=== PATIENT | female | born 1995 | race Caucasian/White ===

== ENCOUNTER → 2020-04-06 | Outpatient (CLI) | payer BC ==
[~2020-04-06] MED LIST: BCP
--- NOTE | 2020-04-06 16:22 | Diagnostic Imaging Report ---
INDICATION: Size and dates, patient. TECHNIQUE/COMPARISON: OB sonography was performed in the routine fashion. There is no prior study for comparison. FINDINGS: The uterus measures 10.3 x 4.8 x 9.1 cm. A single live intrauterine fetus is seen measuring 9 weeks 6 days by crown-rump length with a heart rate of 181 BPM. The crown/rump length is 2.9 cm. The gestational sac appears unremarkable. A normal-appearing yolk sac is visualized. The right ovary measures 5.0 x 1.5 x 2.0 cm and appears unremarkable with color flow. The left ovary could not be visualized. There is no free fluid. IMPRESSION: Single live intrauterine fetus measuring 9 weeks 6 days in size. There is no evidence of subchorionic bleed. There was no free fluid. A normal-appearing right ovary seen but the left ovary was not visualized. Suggest followup later in for a full anatomical survey. Dictated by: Dictated on workstation # [id number]
== END ==
LOC: RAD 14:59
PROVIDERS: ATTEND Family Medicine
DX: Z34.91 Encounter for supervision of normal pregnancy, unspecified, first trimester (principal); Z3A.09 9 weeks gestation of pregnancy
CPT/HCPCS: 76801

== ENCOUNTER → 2020-05-08 | Outpatient (CLI) | payer BC | LOC: CARD 09:07 | PROVIDERS: ATTEND Internal Medicine Cardiovascular Disease | DX: R00.2 Palpitations (principal); R00.0 Tachycardia, unspecified | CPT/HCPCS: 93306 ==

== ENCOUNTER → 2020-06-19 | Outpatient (CLI) | payer BC ==
--- NOTE | 2020-06-19 15:37 | Diagnostic Imaging Report ---
INDICATION: survey. TECHNIQUE: Multiple real-time grayscale images were obtained over the gravid uterus. COMPARISON: 04/06/2020. FINDINGS: There is a single live fetus in a cephalic presentation. heart rate was recorded at 150 BPM. Placenta is posterior. No previa is identified. Amniotic fluid index is 9.8 cm. kidneys, bladder, and stomach are unremarkable. There is a three-vessel cord with normal insertion. spine is unremarkable. brain evaluation is somewhat limited due to position. In addition, four-chamber heart view is somewhat limited due to position. profile and nose and lips is limited. Biometrical measurements are as follows: Biparietal 5.13 cm, age 21 weeks 4 days. Head circumference 18.32 cm, age 20 weeks 5 days. Abdominal circumference 15.53 cm, age 20 weeks 5 days. Femur length 3.23 cm, age 20 weeks 1 days. Sonographic estimate age: 20 weeks 6 days. Sonographic estimated date of delivery: 10/31/2020. Estimated Weight: 357 gm (+/- 52 gm). LMP percentile: 73%. heart rate: 150 beats per minute. number: 1 of 1. IMPRESSION: Single live IUP of approximately 21 weeks gestational age demonstrating normal interval growth when compared with prior exam. survey is unremarkable, although the head anatomy and four-chamber heart view is somewhat limited due to position. Follow-up could be performed. Dictated by: Dictated on workstation # [id number]
== END ==
LOC: RAD 14:00
PROVIDERS: ATTEND Family Medicine
DX: Z36.89 Encounter for other specified antenatal screening (principal); Z3A.21 21 weeks gestation of pregnancy
CPT/HCPCS: 76805

== ENCOUNTER → 2020-07-31 | Outpatient (CLI) | payer BC ==
--- NOTE | 2020-07-31 16:15 | Diagnostic Imaging Report ---
INDICATION: Further evaluation of anatomy not seen on survey. TECHNIQUE: Multiple real-time grayscale images were obtained over the gravid uterus. COMPARISON: 06/19/2020 FINDINGS: Limited anatomy survey is performed and the following structures are visualized and normal: Four-chamber heart, cerebellum, cisterna magna, cerebral ventricles, profile, lips/nose. Placenta is posteriorly positioned and there is no previa. heart rate is 150 bpm. IMPRESSION: 1. The anatomy of the head that was not visualized on prior examination is seen today and normal. Dictated by: Dictated on workstation # [id number]
== END ==
PROVIDERS: ATTEND Family Medicine
DX: Z03.73 Encounter for suspected fetal anomaly ruled out (principal)
CPT/HCPCS: 76816

== ENCOUNTER 2020-10-27 02:28 | Inpatient (IN) | payer BC ==
[2020-10-27] VITALS (60 sets, daily range): BP systolic 106–146; BP diastolic 65–111
[~2020-10-27] VITALS: Ht 167.7 cm; Wt 79.0 kg
--- NOTE | 2020-10-27 02:35 | NUR ---
MICHAEL LOZANO presented to unit via W/C from home/ED, accompanied by ED RN & SO, with c/o CONTRACTIONS,WATER BROKE. MICHAEL LOZANO weighed, gowned, voided, and to bed. EFHM and TOCO applied, VS taken. MICHAEL LOZANO oriented to bed controls, call light, TV, heat, and A/C controls.
[2020-10-27] MEDS ORDERED: D5 LR IV SOLUTION 1,000 ML IV ONE (02:51)
[2020-10-27] MEDS ORDERED: PREN-142 PO (02:57)
[2020-10-27] MEDS ORDERED: ERYTHROMYCIN OPHTH OINT 1 GM (SINGLE USE) TUBE ONE (02:58)
[2020-10-27] MEDS ORDERED: PETROLATUM JELLY(VASELINE) 49 GM JAR ONE (02:58)
[2020-10-27] MEDS ORDERED: PHYTONADIONE (VIT. K) NEONATAL 1 MG/0.5 ML AMP ONE (02:58)
[2020-10-27] MEDS ORDERED: fentaNYL 2 mcg/ml BUPIVA 0.125 100 ML ONE (03:11)
[2020-10-27] MEDS ORDERED: labetalol PO (03:22)
[2020-10-27] MEDS: D5 LR IV SOLUTION 1,000 ML IV SCH ×2 (03:27→10:15)
[2020-10-27 03:47] LABS: BASOPHILS % (AUTO) 0 % (0-10); EOSINOPHILS # (AUTO) 0.2 10^3/uL (0.0-0.3); EOSINOPHILS % (AUTO) 2 % (0-10); HEMATOCRIT 32 % (35-52); HEMOGLOBIN 10.3 g/dL (11.5-16.0); LYMPHOCYTES # (AUTO) 3.2 10^3/uL (1.0-4.0); LYMPHOCYTES % (AUTO) 30 % (12-44); MEAN CORPUSCULAR HEMOGLOBIN 28 pg (25-34); MEAN CORPUSCULAR HGB CONC 32 g/dL (32-36); MEAN CORPUSCULAR VOLUME 88 fL (80-99); MEAN PLATELET VOLUME 12.1 fL (9.0-12.2); MONOCYTES % (AUTO) 9 % (0-12); NEUTROPHILS # (AUTO) 6.4 10^3/uL (1.8-7.8); NEUTROPHILS % (AUTO) 58 % (42-75); PLATELET COUNT 149 10^3/uL (130-400); WHITE BLOOD COUNT 10.9 10^3/uL (4.3-11.0)
[2020-10-27] MEDS ORDERED: LORA10TA76 PO (04:26)
[2020-10-27] MEDS ORDERED: LACTATED RINGERS 1,000 ML IV SCH (04:45)
[2020-10-27] MEDS ORDERED: diphenhydrAMINE 50 MG/ML INJ (BENADRYL) IV PRN (04:45)
[2020-10-27] MEDS ORDERED: METOCLOPRAMIDE INJ 10 MG/2 ML (REGLAN) IV PRN (04:45)
[2020-10-27] MEDS ORDERED: NALOXONE 0.4 MG/ML 1 ML (NARCAN) VIAL IV PRN ×2 (04:45)
[2020-10-27] MEDS ORDERED: ONDANSETRON 4 MG/2 ML (SDV) Z0FRAN IV PRN (04:45)
[2020-10-27] MEDS: EPIDURAL (fentaNYL 2 MCG/ML BUPIVA 0.125%)100 ML BAG EPI SCH ×2 (05:04→10:40)
[2020-10-27] MEDS: CATHETER FLUSH 10 ML SYR IV SCH ×2 (05:37→15:27)
--- NOTE | 2020-10-27 06:38 | History & Physical-OB ---
OB - Chief Complaint & HPI Date/Time Date of Admission: Date of Admission: Oct 27, 2020 at 02:50 Date seen by a Provider: Oct 27, 2020 Time Seen by a Provider: 06:30 Chief Complaint/History OB-Reason for Admission/Chief: Rupture of Membranes Hx : 1 Hx Para: 0 Expected Date of Delivery: Nov 03, 2020 Gestational Age in Weeks: 39 Gestational Age in Days: 0 Admission Nurse Assessment Rev: Yes History of Labs GBS negative at 36 weeks Allergies and Home Medications Allergies Coded Allergies: No Known Drug Allergies (Unverified , 05/05/15) Home Medications Loratadine 10 Mg Tablet, 10 MG PO DAILY, (Reported) Vit No.124/Iron/FA 1 Each Tablet, 1 EACH PO DAILY, (Reported) [labetalol] , PO DAILY, (Reported) Patient Home Medication List Home Medication List Reviewed: Yes OB - History Hx of Present Care: Yes Ultrasounds: Normal mid trimester US Obstetrical Complications: None Medical Complications: None Patient Past Medical History no chronic medical problems Immunizations Tetanus Booster (TDap): Less than 5yrs Date of Influenza Vaccine: Jun 01, 2020 OB - Admission Exam Physical Exam Vitals: Vital Signs 10/27/20 10/27/20 05:30 05:50 Temp 36.8 Pulse 98 Resp 18 B/P (MAP) 119/78 (92) Pulse Ox 99 O2 Delivery Room Air HEENT: Moist Membranes Heart: Rhythm Normal Lungs: Clear Abdomen: Gravid Extremities: Normal Cervical Dilatation: 3cm (on admission) Effacement: 50% Station: -3 Membranes: Ruptured Amniotic Fluid: Clear Heart Rate: 140's Accelerations: Accelerations Present Decelerations: No Decelerations Short Term Variability: Present Glass Cleaning Machine Tender Variability: Absent (0-2) Contractions on Admission: < 5 Minutes Apart Intensity: Moderate Labs Laboratory Tests Test 10/27/20 03:10 10/27/20 03:35 Range/Units White Blood Count 10.9 4.3-11.0 10^3/uL Red Blood Count 3.68 L 3.80-5.11 10^6/uL Hemoglobin 10.3 L 11.5-16.0 g/dL Hematocrit 32 L 35-52 % Mean Corpuscular Volume 88 80-99 fL Mean Corpuscular Hemoglobin 28 25-34 pg Mean Corpuscular Hemoglobin Concent 32 32-36 g/dL Red Cell Distribution Width 13.5 10.0-14.5 % Platelet Count 149 130-400 10^3/uL Mean Platelet Volume 12.1 9.0-12.2 fL Immature Granulocyte % (Auto) 2 % Neutrophils (%) (Auto) 58 42-75 % Lymphocytes (%) (Auto) 30 12-44 % Monocytes (%) (Auto) 9 0-12 % Eosinophils (%) (Auto) 2 0-10 % Basophils (%) (Auto) 0 0-10 % Neutrophils # (Auto) 6.4 1.8-7.8 10^3/uL Lymphocytes # (Auto) 3.2 1.0-4.0 10^3/uL Monocytes # (Auto) 1.0 0.0-1.0 10^3/uL Eosinophils # (Auto) 0.2 0.0-0.3 10^3/uL Basophils # (Auto) 0.0 0.0-0.1 10^3/uL Immature Granulocyte # (Auto) 0.2 H 0.0-0.1 10^3/uL OB - Assessment/Plan/Diagnosis Assessment Assessment: rupture of membranes (at 39 weeks gestation) Admission Dx 1. IUP at term 39weeks with SROM Admission Status: Inpatient Order (span 2 midnights) Reason for Inpatient Admission: L&D Plan Plan: Expectant Management Other Plan -epidural desired -pitocin if needed ART MAR MD Oct 27, 2020 06:38
[2020-10-27] MEDS ORDERED: OXYTOCIN PRE-MIX DRIP 500 ML IV SCH ×2 (06:45→15:30)
--- NOTE | 2020-10-27 07:00 | NUR ---
REPORT FROM PEARL BALL. CARE OF PT ASSUMED.
[2020-10-27] MEDS ORDERED: MEPIVACAINE (CARBOCAINE) 2% 50 ML VIAL ONE (08:01)
--- NOTE | 2020-10-27 13:50 | NUR ---
1350-REPAIR COMPLETED PER FFU/2 LT LOCHIA NOTED. 1357- PERICARE COMPLETED, PAD AND PANTIES APPLIED, ICE PACK TO PERINEUM, PT REPOSITIONED IN BED, EPIDURAL CATHETER REMOVED. SKIN TO SKIN WITH MOTHER. 1405- INFANT REMAINS SKIN TO SKIN WITH MOTHER, FFU/2 LT LOCHIA NOTED. 1407- PITOCIN 2ND BAG STARTED PER ORDER.
--- NOTE | 2020-10-27 14:21 | OB Labor & Delivery Record ---
L&D History Date of Service Date of Service: Oct 27, 2020 History Expected Date of Delivery: Nov 03, 2020 Gestational Age in Weeks: 39 Hx : 1 Hx Para: 0 Complications Events: Routine care Operative Indications (Cesarea: N/A-Vaginal Delivery Intrapartal Events: None L&D Stage1 Stage One Onset of Labor - Date: Oct 27, 2020 Onset of Labor - Time: 01:30 Monitors and Tracing Monitor Mode: Internal Heart Rate: 135 Monitor Decelerations: Variable Station: -2 Vital Signs VS - Last 72 Hours, by Label 10/27/20 10/27/20 10/27/20 10/27/20 02:41 02:41 03:24 03:43 Temp 36.8 36.8 Pulse 104 104 89 96 Resp 18 18 18 18 B/P (MAP) 141/96 (111) 135/97 (110) 140/97 (111) Pulse Ox 98 98 O2 Delivery Room Air Room Air Room Air Room Air 10/27/20 10/27/20 10/27/20 10/27/20 03:54 04:09 04:25 04:33 Pulse 92 96 98 93 Resp 18 18 18 18 B/P (MAP) 142/98 (113) 137/102 (114) 146/111 (123) 146/97 (113) Pulse Ox 98 O2 Delivery Room Air Room Air Room Air Room Air 10/27/20 10/27/20 10/27/20 10/27/20 04:39 04:48 04:53 04:58 Pulse 102 99 84 103 Resp 18 18 18 18 B/P (MAP) 130/90 (103) 124/86 (99) 124/85 (98) 119/83 (95) Pulse Ox 97 99 99 98 O2 Delivery Room Air Room Air Room Air Room Air 10/27/20 10/27/20 10/27/20 10/27/20 05:11 05:18 05:22 05:30 Temp 36.8 Pulse 105 105 102 99 Resp 18 18 18 18 B/P (MAP) 111/72 (85) 112/80 (91) 116/83 (94) 114/80 (91) Pulse Ox 99 98 99 100 O2 Delivery Room Air Room Air Room Air Room Air 10/27/20 10/27/20 10/27/20 10/27/20 05:35 05:40 05:45 05:50 Pulse 86 97 95 98 Resp 18 18 18 18 B/P (MAP) 118/70 (86) 115/75 (88) 112/75 (87) 119/78 (92) Pulse Ox 100 100 99 99 O2 Delivery Room Air Room Air Room Air Room Air 10/27/20 10/27/20 10/27/20 10/27/20 06:00 06:15 06:30 06:45 Pulse 100 100 85 110 Resp 18 18 18 18 B/P (MAP) 118/80 (93) 114/74 (87) 120/81 (94) 123/88 (100) Pulse Ox 99 98 99 99 O2 Delivery Room Air Room Air Room Air Room Air 10/27/20 10/27/20 10/27/20 10/27/20 07:00 07:15 07:30 07:45 Pulse 97 106 104 97 Resp 18 18 18 18 B/P (MAP) 123/65 (84) 111/75 (87) 109/74 (86) 106/70 (82) Pulse Ox 99 99 99 99 O2 Delivery Room Air Room Air Room Air Room Air 10/27/20 10/27/20 10/27/20 10/27/20 08:00 08:12 08:15 08:30 Temp 36.4 Pulse 106 100 105 102 Resp 18 18 18 18 B/P (MAP) 116/80 (92) 121/79 (93) 118/80 (93) 127/79 (95) Pulse Ox 99 98 99 O2 Delivery Room Air Room Air Room Air Room Air 10/27/20 10/27/20 10/27/20 10/27/20 08:45 09:00 09:15 09:30 Pulse 105 102 92 104 Resp 18 18 18 18 B/P (MAP) 125/82 (96) 123/81 (95) 125/84 (98) 122/85 (97) Pulse Ox 100 99 100 98 O2 Delivery Room Air Room Air Room Air Room Air 10/27/20 10/27/20 10/27/20 10/27/20 09:45 10:00 10:15 10:30 Pulse 100 96 90 105 Resp 18 18 18 18 B/P (MAP) 123/85 (98) 134/91 (105) 130/86 (101) 118/79 (92) Pulse Ox 98 98 98 99 O2 Delivery Room Air Room Air Room Air Room Air 10/27/20 10/27/20 10/27/20 10/27/20 10:45 11:00 11:15 11:30 Temp 36.5 Pulse 100 99 100 91 Resp 18 18 18 18 B/P (MAP) 120/84 (96) 124/77 (93) 119/76 (90) 116/82 (93) Pulse Ox 100 100 99 99 O2 Delivery Non Rebreather Non Rebreather Non Rebreather Non Rebreather O2 Flow Rate 15.00 15.00 15.00 15.00 10/27/20 11:45 Pulse 104 Resp 18 B/P (MAP) 117/82 (94) Pulse Ox 100 O2 Delivery Non Rebreather O2 Flow Rate 15.00 Rupture of Membranes Amniotic Membrane Rupture Time: 0130 Induction/Anesthesia Epidural Cath Placement - Time: 0433 L&D Stage2 Stage Two Stage II Date: Oct 27, 2020 Stage II Time: 12:32 Monitors and Tracing Monitor Mode: External Heart Rate: 135 Monitor Decelerations: Variable Condition of Delivery 1 minute Comment: 8 5 minute Comment: 9 Condition of Infant Condition of Infant: Living Exam: No Observed Abnormalities Resuscitation Resuscitation: N/A - Spontaneous Resp L&D Stage3 Stage Three Stage III Date: Oct 27, 2020 Stage III Time: 12:38 Pictocin Pitocin Administration mu/min: 6 Pitocin ml/hr: 6 Pitocin Administration Comment: PITOCIN INCREASED PER PROTOCOL. Delivery Summary Summary Estimated blood loss (mL): 200 ART MAR MD Oct 27, 2020 14:21
[2020-10-27] MEDS ORDERED: WITCH HAZEL(TUCKS) 40 EA JAR ONE (15:26)
[2020-10-27] MEDS ORDERED: IBUPROFEN 800 MG (MOTRIN) TAB PO ONE (15:26)
[2020-10-27] MEDS ORDERED: BENZOCAINE/MENTHOL (DERMOPLAST) 60 ML CAN TP ONE (15:26)
[2020-10-27] MEDS ORDERED: DIBUCAINE (NUPERCAINAL) 1% OINT 30 GM TOP PRN (15:30)
[2020-10-27] MEDS ORDERED: HYDROcodone/APAP 5 MG/325 MG (LORTAB) TAB PO PRN (15:30)
[2020-10-27] MEDS ORDERED: MEASLES,MUMPS,RUBELLA 1 EA INJ SQ ONE (15:30)
[2020-10-27] MEDS ORDERED: TETANUS,DIPTH,PERTUSS P/F (BOOSTRIX) 0.5 ML VIAL IM ONE (15:30)
[2020-10-27] MEDS ORDERED: MEPIVACAINE (CARBOCAINE) 2% 20 ML VIAL INJ ONE (15:30)
[2020-10-27] MEDS: WITCH HAZEL(TUCKS) 40 EA JAR TOP PRN (15:33)
[2020-10-27] MEDS: BENZOCAINE/MENTHOL (DERMOPLAST) 60 ML CAN TP PRN (15:36)
--- NOTE | 2020-10-27 15:41 | NUR ---
SCHEDULED MOTRIN GIVEN PO,FOOD ORDERED.
[2020-10-27] MEDS ORDERED: IBUPROFEN 800 MG (MOTRIN) TAB PO SCH ×2 (16:00→22:00)
--- NOTE | 2020-10-27 16:00 | NUR ---
PT AMBULATED TO BR, VOIDED WITHOUT DIFFICULTY, PERICARE EXPLAINED AND COMPLETED, PAD AND PANTIES ON, PT TRANSFERRED TO ROOM 3310 BY FOR CARE. NO QUESTIONS OR CONCERNS NOTED, FFU/1 LT LOCHIA NOTED, WILL MONITOR CLOSELY.
[2020-10-27] MEDS: DOCUSATE SODIUM 100 MG (COLACE) CAP PO SCH (21:30)
[2020-10-27] MEDS: IBUPROFEN 600 MG (MOTRIN) TAB PO SCH (21:30)
[2020-10-27] MEDS ORDERED: CATHETER FLUSH 10 ML SYR IV SCH (22:00)
[2020-10-28 00:30] VITALS: BP 113/72
[2020-10-28 03:34] VITALS: BP 131/81
[2020-10-28] MEDS: IBUPROFEN 600 MG (MOTRIN) TAB PO SCH ×2 (03:34→09:49)
[2020-10-28 05:36] LABS: BASOPHILS % (AUTO) 0 % (0-10); EOSINOPHILS # (AUTO) 0.2 10^3/uL (0.0-0.3); EOSINOPHILS % (AUTO) 1 % (0-10); HEMATOCRIT 30 % (35-52); HEMOGLOBIN 9.8 g/dL (11.5-16.0); LYMPHOCYTES # (AUTO) 2.8 10^3/uL (1.0-4.0); LYMPHOCYTES % (AUTO) 16 % (12-44); MEAN CORPUSCULAR HEMOGLOBIN 28 pg (25-34); MEAN CORPUSCULAR HGB CONC 32 g/dL (32-36); MEAN CORPUSCULAR VOLUME 86 fL (80-99); MEAN PLATELET VOLUME 12.2 fL (9.0-12.2); MONOCYTES # (AUTO) 1.2 10^3/uL (0.0-1.0); MONOCYTES % (AUTO) 7 % (0-12); NEUTROPHILS # (AUTO) 13.2 10^3/uL (1.8-7.8); NEUTROPHILS % (AUTO) 75 % (42-75); PLATELET COUNT 136 10^3/uL (130-400); WHITE BLOOD COUNT 17.6 10^3/uL (4.3-11.0)
--- NOTE | 2020-10-28 06:53 | Discharge Summary ---
Diagnosis/Chief Complaint Date of Admission Oct 27, 2020 at 02:50 Date of Discharge Discharge Date: Oct 28, 2020 Discharge Time: 15:00 Admission Diagnosis Admission Diagnosis 1. Intrauterine at 39 weeks gestation 2. Anemiairon deficiency, mild Discharge Diagnosis 1. Intrauterine at 39 weeks gestation 2. Anemiairon deficiency, mild Reason Hospital Visit 25-year-old 1 now term 1 who initially presented to labor and delivery during the morning of October 27, 2020 with spontaneous rupture of membranes. Her due date is noted to be November 03, 2020. Her care was began and first trimester and essentially unremarkable. She was noted to have tachycardia in first trimester and this was corrected with giving labetalol. She continue with labetalol throughout the entire . She had admitted to [facility] upon presentation in the morning of October 27, 2020. She described the fluid is clear that had spontaneously ruptured. Discharge Summary-OBS Procedures 1. Epidural per anesthesia 2. Spontaneous vaginal delivery with suction assistance 3. Repair of midline episiotomy without extension Discharge Physical Examination Allergies: Coded Allergies: No Known Drug Allergies (Unverified , 05/05/15) Vitals & I&Os Vital Signs Date Time Temp Pulse Resp B/P (MAP) Pulse Ox O2 Delivery O2 Flow Rate FiO2 10/28/20 03:34 36.8 82 18 131/81 (98) 98 Room Air 10/27/20 13:30 15.00 General Appearance: No Acute Distress Respiratory: Clear to Auscultation Cardiovascular: Regular Rate Abdominal: Normal Bowel Sounds, Soft Neuro: Normal Gait Hospital Course Was the Problem List Reviewed?: Yes patient was admitted to labor and delivery in the morning of October 27, 2020. She received epidural per anesthesia and tolerated well. She continued to contract requiring only low-dose Pitocin augmentation. Strip remained reactive throughout the entire course of labor. Once the completion she was allowed to push. Ultimately she delivered over a midline episiotomy and suction assistance a term viable male. Infant received Apgars of 8 at 1 minute and 9 minutes. delivered at 1232 on October 27, 2020. Following delivery Luis Miguel had routine care orders. She was noted to have hemoglobin the day after delivery of 9.8 compared to 10.3 on admission. She was without symptoms of lightheadedness and her pulse rate was stable under 100. Patient tolerated regular diet and was noted to ambulate without difficulty. She denied any significant vaginal bleeding or cramping. She was felt ready for dismissal during the afternoon of October 28, 2020. She will follow-up in [address] Mar. Pending Labs Laboratory Tests 10/28/20 04:59: White Blood Count 17.6, Red Blood Count 3.52, Hemoglobin 9.8, Hematocrit 30, Mean Corpuscular Volume 86, Mean Corpuscular Hemoglobin 28, Mean Corpuscular Hemoglobin Concent 32, Red Cell Distribution Width 13.8, Platelet Count 136, Mean Platelet Volume 12.2, Immature Granulocyte % (Auto) 1, Neutrophils (%) (Auto) 75, Lymphocytes (%) (Auto) 16, Monocytes (%) (Auto) 7, Eosinophils (%) (Auto) 1, Basophils (%) (Auto) 0, Neutrophils # (Auto) 13.2, Lymphocytes # (Auto) 2.8, Monocytes # (Auto) 1.2, Eosinophils # (Auto) 0.2, Basophils # (Auto) 0.0, Immature Granulocyte # (Auto) 0.2 Discharge Instructions to patient/family Please see electronic discharge instructions given to patient. Discharge Medications Reviewed and agree with Discharge Medication list on patient's Discharge Instruction sheet ART MAR MD Oct 28, 2020 06:53
--- NOTE | 2020-10-28 06:55 | Discharge Inst-Women's Service ---
Discharge Inst-Women's Serv Depart Medication/Instructions New, Converted or Re-Newed RX: Other Instructions for uterine cramping you may take 2 or 3 200 mg ibuprofen every 6 hours if needed. Problems Reviewed?: Yes Consults/Follow Up Additional Follow Up: Yes (Dr. Mar in 6 weeks.) Activity Driving Instructions: No Driving for 1 Week Nothing Inside Vagina: No [place] (for 6 weeks) Diet Discharge Diet: Regular Diet Return to The Hospital For: as below Symptoms to Report to : Pain Increased, Fever Over 101 Degrees F, Vaginal Bleeding Increase, Vaginal Discharge Foul For Any Problems or Questions: Contact Your Physician ART MAR MD Oct 28, 2020 06:55
[2020-10-28] MEDS ORDERED: PRENATAL VITAMIN 1 EA TAB PO SCH (07:00)
--- NOTE | 2020-10-28 07:00 | Anesthesia-Regional Post-Op ---
Regional Patient Condition Mental Status: Alert, Oriented x3 Circulation: Same as Pre-Op Headache: Absent Sensation: Full Recovery Motor Block: Absent Post Op Complications Complications None Follow Up Care/Instructions Patient Instructions None needed. Anesthesia/Patient Condition Patient is doing well, no complaints, stable vital signs, no apparent adverse anesthesia problems. No complications reported per nursing. D/C home per [facility] Criteria: FREDERICK Del Toro CRNA Oct 28, 2020 07:00
[2020-10-28] MEDS: DOCUSATE SODIUM 100 MG (COLACE) CAP PO SCH (09:49)
[2020-10-28 09:50] VITALS: BP 131/79
[2020-10-28] MEDS: WITCH HAZEL(TUCKS) 40 EA JAR TOP PRN (10:02)
[2020-10-28] MEDS: BENZOCAINE/MENTHOL (DERMOPLAST) 60 ML CAN TP PRN (10:02)
[2020-10-28 13:00] VITALS: BP 130/71
--- NOTE | 2020-10-28 15:25 | NUR ---
MICHAEL LOZANO demonstrates understanding of discharge instructions and accurately returns instructions upon questioning. Copy of Post-Discharge Instructions given to PT. MICHAEL LOZANO is able to manage continuing needs after discharge. Patients belongings returned to .
--- NOTE | 2020-10-28 16:10 | NUR ---
Patient discharged from 3310-1 on 10/28/20 at 1610. MICHAEL LOZANO left floor via [AMBULATION], accompanied by STAFF, AND S/O].
== END 2020-10-28 16:10 | disposition home or self-care (01) | DRG 807 ==
LOC: WSo 02:28 → LDRP 02:30 → WSo 02:49 → LDRP 02:50
PROVIDERS: ADMIT Family Medicine; ATTEND Family Medicine
PROC: 10E0XZZ Delivery of Products of Conception, External Approach (ICD-10-PCS; principal; 2020-10-27)
PROC: 0W8NXZZ Division of Female Perineum, External Approach (ICD-10-PCS; 2020-10-27)
DX: O90.81 Anemia of the puerperium (principal); Z37.0 Single live birth; D50.9 Iron deficiency anemia, unspecified; Z3A.39 39 weeks gestation of pregnancy; Z23 Encounter for immunization; Z20.822 Contact with and (suspected) exposure to COVID-19
CPT/HCPCS: 36415; 85025; 86850; 86900; 86901; 87635; 90715; 99212

== ENCOUNTER → 2022-08-08 | Outpatient (CLI) | payer BC ==
[~2022-08-08] MED LIST changes: +LORA10TA76 PO; +PREN-142 PO; +labetalol PO
--- NOTE | 2022-08-08 19:09 | Diagnostic Imaging Report ---
PROCEDURE: US OB SINGLE FETUS <14 WKS. TECHNIQUE: Multiple real-time grayscale images were obtained over the gravid uterus in various projections, transabdominally. INDICATION: Assessment for size and dates CORRELATION STUDY: None FINDINGS: Intrauterine gestational sac is present. Configuration is unremarkable and there is normal amount of amniotic fluid. No abnormal perigestational hematoma. [place]-rump length measures 10 weeks 1 day for an estimated date of delivery 03/08/2023. cardiac activity is present at 188 bpm. The ovaries are not visualized. No definitive abnormal adnexal mass lesion. IMPRESSION: 1. Intrauterine , sonographically estimated age 10 weeks 1 day for an estimated date of delivery 03/08/2023. Dictated on workstation # [id number]
== END ==
LOC: RAD 14:48
PROVIDERS: ATTEND Family Medicine
DX: Z34.91 Encounter for supervision of normal pregnancy, unspecified, first trimester (principal); Z3A.10 10 weeks gestation of pregnancy
CPT/HCPCS: 76801

== ENCOUNTER → 2022-10-19 | Outpatient (CLI) | payer BC ==
--- NOTE | 2022-10-19 17:45 | Diagnostic Imaging Report ---
INDICATION: Anatomic survey, 20 weeks and 0 days . TECHNIQUE: Multiple real-time grayscale images were obtained over the gravid uterus. COMPARISON: 08/08/2022 FINDINGS: The cervix measures 6.2 cm in length. No funneling is seen. Presentation is transverse with the head to the maternal left. The placenta is anterior with the tip of the placenta located about 2.2 cm from the internal os, borderline low lying. The amniotic fluid index measures 12.8 cm. The heart rate measures 139 BPM. The stomach is seen. The nose and lips are seen. The kidneys are seen. The bladder is seen. A three-vessel cord is demonstrated with 2 umbilical arteries. The cord insertion is seen. The nose and lips are seen. The cerebellum and cisterna magna are seen. The lateral ventricles seen. The upper and lower spine is seen. The profile is seen. The four-chamber heart is suboptimally visualized. Biometrical measurements are as follows: Biparietal 4.81 cm, age 20 weeks 4 days. Head circumference 18.12 cm, age 20 weeks 4 days. Abdominal circumference 15.88 cm, age 21 weeks 1 days. Femur length 3.20 cm, age 20 weeks 0 days. Sonographic estimate age: 20 weeks 4 days. Sonographic estimated date of delivery: 03/04/2023. Estimated Weight: 360 gm (+/- 53 gm). LMP percentile: 75%. heart rate: 139 beats per minute. number: 1 of 1. IMPRESSION: 1. Single live intrauterine gestation measuring at 20 weeks and 4 days which is within range of the clinical dates. 2. Anatomic survey. No abnormality is seen. The four-chamber heart is suboptimally visualized. 3. Transverse presentation. 4. Borderline low lying placenta, recommend continued followup. Dictated by: Dictated on workstation # [id number]
== END ==
LOC: RAD 15:15
PROVIDERS: ATTEND Family Medicine
DX: Z36.2 Encounter for other antenatal screening follow-up (principal); Z3A.20 20 weeks gestation of pregnancy
CPT/HCPCS: 76805

== ENCOUNTER → 2023-01-20 | Outpatient (CLI) | payer BC ==
--- NOTE | 2023-01-20 18:10 | Diagnostic Imaging Report ---
INDICATION: Low lying placenta TECHNIQUE: Multiple real-time grayscale images were obtained over the gravid uterus. COMPARISON: 10/19/2022 FINDINGS: The fetus is in cephalic presentation. The cervix measures 4.7 cm in length. Placenta is anterior in position. The tip of the placenta is 2.7 cm from the internal cervical os. heart rate is 126 bpm. WENDY is normal at 12.96 cm. IMPRESSION: 1. The tip of the placenta is now 2.7 cm from the internal cervical os by transvaginal imaging. This no longer meets criteria for low lying placenta. Dictated by: Dictated on workstation # [id number]
== END ==
LOC: RAD 15:15
PROVIDERS: ATTEND Family Medicine
DX: O44.40 Low lying placenta NOS or without hemorrhage, unspecified trimester (principal); Z3A.00 Weeks of gestation of pregnancy not specified
CPT/HCPCS: 76816

== ENCOUNTER 2023-03-01 05:56 | Inpatient (IN) | payer BC ==
[~2023-03-01] VITALS: Ht 172 cm; Wt 75.7 kg
[2023-03-01] VITALS (40 sets, daily range): BP systolic 115–142; BP diastolic 7–101
[2023-03-01] MEDS ORDERED: D5 LR IV SOLUTION 1,000 ML IV SCH (06:15)
[2023-03-01 06:26] LABS: BASOPHILS % (AUTO) 0 % (0-10); EOSINOPHILS # (AUTO) 0.1 10^3/uL (0.0-0.3); EOSINOPHILS % (AUTO) 1 % (0-10); HEMATOCRIT 37 % (35-52); HEMOGLOBIN 12.1 g/dL (11.5-16.0); LYMPHOCYTES # (AUTO) 4.1 10^3/uL (1.0-4.0); LYMPHOCYTES % (AUTO) 37 % (12-44); MEAN CORPUSCULAR HEMOGLOBIN 30 pg (25-34); MEAN CORPUSCULAR HGB CONC 33 g/dL (32-36); MEAN CORPUSCULAR VOLUME 90 fL (80-99); MEAN PLATELET VOLUME 11.7 fL (9.0-12.2); MONOCYTES # (AUTO) 0.7 10^3/uL (0.0-1.0); MONOCYTES % (AUTO) 7 % (0-12); NEUTROPHILS # (AUTO) 6.2 10^3/uL (1.8-7.8); NEUTROPHILS % (AUTO) 55 % (42-75); PLATELET COUNT 179 10^3/uL (130-400); WHITE BLOOD COUNT 11.1 10^3/uL (4.3-11.0)
[2023-03-01 06:52] LABS: BILIRUBIN,URINE NEGATIVE (NEGATIVE); CLARITY,URINE SL CLOUDY; COLOR,URINE YELLOW; GLUCOSE, URINE (UA) NEGATIVE (NEGATIVE); KETONES,URINE NEGATIVE (NEGATIVE); LEUKOCYTE ESTERASE ,URINE NEGATIVE (NEGATIVE); NITRITE,URINE NEGATIVE (NEGATIVE); PROTEIN,URINE NEGATIVE (NEGATIVE)
[2023-03-01 07:02] LABS: AMORPHOUS SEDIMENT,UR FEW AMOR URATES /LPF; BACTERIA,URINE NEGATIVE /HPF
--- NOTE | 2023-03-01 07:11 | History & Physical-OB ---
OB - Chief Complaint & HPI Date/Time Date of Admission: Date of Admission: Mar 01, 2023 at 05:56 Date seen by a Provider: Mar 01, 2023 Time Seen by a Provider: 06:30 Chief Complaint/History OB-Reason for Admission/Chief: Induction of Labor Hx : 2 Hx Para: 1 Expected Date of Delivery: Mar 08, 2023 Gestational Age in Weeks: 39 Gestational Age in Days: 0 Indication for induction: medical complication (Due to maternal tachycardia currently under control with labetalol) Admission Nurse Assessment Rev: Yes History of Labs group B strep negative Allergies and Home Medications Allergies Coded Allergies: No Known Drug Allergies (Unverified , 05/05/15) Patient Home Medication List Home Medication List Reviewed: Yes Loratadine (Claritin) 10 Mg Tablet, 10 MG PO DAILY, (Reported) Entered as Reported by: ANJELICA HENSON on 10/27/20 0426 Vit No.124/Iron/FA ( Vitamin Tablet) 1 Each Tablet, 1 EACH PO DAILY, (Reported) Entered as Reported by: ANJELICA HENSON on 10/27/20 0257 OB - History Hx of Present Care: Yes Ultrasounds: Normal mid trimester US Obstetrical Complications: None Medical Complications: Cardiovascular (With maternal tachycardia) Patient Past Medical History Sinus tachycardia during pregnancies Immunizations Tetanus Booster (TDap): Less than 5yrs OB - Admission Exam Physical Exam Vitals: Vital Signs 03/01/23 06:23 Temp 36.4 Pulse 110 Resp 18 Pulse Ox 98 O2 Delivery Room Air HEENT: Moist Membranes Heart: Rhythm Normal (With a rate currently at 100) Lungs: Clear Abdomen: Gravid Extremities: Normal Cervical Dilatation: 2cm Effacement: 75% Station: -3 Membranes: Ruptured Amniotic Fluid: Clear Heart Rate: 130's Accelerations: Accelerations Present Short Term Variability: Present [facility] Variability: Average (6-25) Contractions on Admission: >10 Minutes Apart Intensity: Mild Nichols Scoring Tool (Modified) Dilation (cm): 1-2cm (1) Effacement (%): 51-79% (2) Descent/Station: -3 (0) Cervix Consistency: Medium(1) Cervix Position: Middle/Mid-Position (1) Add 1 point for: Each previous vaginal delivery (1) Nichols Score: 6 Labs Laboratory Tests Test 03/01/23 06:15 03/01/23 06:50 Range/Units White Blood Count 11.1 H 4.3-11.0 10^3/uL Red Blood Count 4.10 3.80-5.11 10^6/uL Hemoglobin 12.1 11.5-16.0 g/dL Hematocrit 37 35-52 % Mean Corpuscular Volume 90 80-99 fL Mean Corpuscular Hemoglobin 30 25-34 pg Mean Corpuscular Hemoglobin Concent 33 32-36 g/dL Red Cell Distribution Width 13.8 10.0-14.5 % Platelet Count 179 130-400 10^3/uL Mean Platelet Volume 11.7 9.0-12.2 fL Immature Granulocyte % (Auto) 1 % Neutrophils (%) (Auto) 55 42-75 % Lymphocytes (%) (Auto) 37 12-44 % Monocytes (%) (Auto) 7 0-12 % Eosinophils (%) (Auto) 1 0-10 % Basophils (%) (Auto) 0 0-10 % Neutrophils # (Auto) 6.2 1.8-7.8 10^3/uL Lymphocytes # (Auto) 4.1 H 1.0-4.0 10^3/uL Monocytes # (Auto) 0.7 0.0-1.0 10^3/uL Eosinophils # (Auto) 0.1 0.0-0.3 10^3/uL Basophils # (Auto) 0.0 0.0-0.1 10^3/uL Immature Granulocyte # (Auto) 0.1 0.0-0.1 10^3/uL Syphilis Total Antibody Negative Negative Urine Color YELLOW Urine Clarity SL CLOUDY Urine pH 6.0 5-9 Urine Specific [place] 1.020 1.016-1.022 Urine Protein NEGATIVE NEGATIVE Urine Glucose (UA) NEGATIVE NEGATIVE Urine Ketones NEGATIVE NEGATIVE Urine Nitrite NEGATIVE NEGATIVE Urine Bilirubin NEGATIVE NEGATIVE Urine Urobilinogen 0.2 < = 1.0 MG/DL Urine Leukocyte Esterase NEGATIVE NEGATIVE Urine RBC (Auto) NEGATIVE NEGATIVE Urine RBC NONE /HPF Urine WBC NONE /HPF Urine Squamous Epithelial Cells 10-25 H /HPF Urine Crystals PRESENT H /LPF Urine Amorphous Sediment FEW JULIANNA URATES H /LPF Urine Bacteria NEGATIVE /HPF Urine Casts NONE /LPF Urine Mucus NEGATIVE /LPF Urine Culture Indicated NO OB - Assessment/Plan/Diagnosis Assessment Assessment: induction of labor (At term 39 weeks gestation) Admission Dx 1. Intrauterine at term 39 weeks 2. Maternal tachycardiacurrently controlled at rate 100 Admission Status: Inpatient Order (span 2 midnights) Reason for Inpatient Admission: L&D Plan Plan: Induction Induction Method: AROM Other Plan -epidural if so desired -Pitocin as needed ART MAR MD Mar 01, 2023 07:10
[2023-03-01] MEDS ORDERED: OXYTOCIN PRE-MIX DRIP 500 ML IV SCH ×2 (07:15→13:00)
[2023-03-01] MEDS ORDERED: fentaNYL 2 mcg/ml BUPIVA 0.125 100 ML ONE (08:22)
[2023-03-01] MEDS ORDERED: fentaNYL INJ 100 MCG/2 ML AMP ONE (09:08)
[2023-03-01] MEDS ORDERED: BUPIVACAINE 0.25% 10 ML (SENSORCAINE) VIAL ONE (09:09)
[2023-03-01] MEDS ORDERED: fentaNYL 2 mcg/ml BUPIVA 0.125 100 ML EPI SCH (09:15)
[2023-03-01] MEDS ORDERED: LACTATED RINGERS 1,000 ML IV SCH (09:15)
[2023-03-01] MEDS ORDERED: ONDANSETRON 4 MG/2 ML (SDV) Z0FRAN IV PRN (09:15)
[2023-03-01] MEDS ORDERED: NALOXONE 0.4 MG/ML 1 ML (NARCAN) VIAL IV PRN ×2 (09:15→13:00)
[2023-03-01] MEDS ORDERED: diphenhydrAMINE 50 MG/ML INJ (BENADRYL) IV PRN (09:15)
--- NOTE | 2023-03-01 12:52 | OB Labor & Delivery Record ---
L&D History Date of Service Date of Service: Mar 01, 2023 History Expected Date of Delivery: Mar 01, 2023 Gestational Age in Weeks: 39 Hx : 2 Hx Para: 2 Complications Events: Routine care (Except for sinus tachycardia controlled with labetalol) Operative Indications (Cesarea: N/A-Vaginal Delivery Intrapartal Events: None L&D Stage1 Stage One Onset of Labor - Date: Mar 01, 2023 Onset of Labor - Time: 06:34 Monitors and Tracing Monitor Mode: Internal Heart Rate: 125 Monitor Accelerations: Uniform Monitor Decelerations: None Station: -2 Assisted Variability: Average (6-10) Short Term Variability: Present Presentation: Vertex Vital Signs VS - Last 72 Hours, by Label 03/01/23 03/01/23 03/01/23 03/01/23 06:23 07:30 08:00 08:15 Temp 36.4 36.5 Pulse 110 107 109 108 Resp 18 16 20 20 B/P (MAP) 133/98 (110) 133/88 (103) 139/101 (114) Pulse Ox 98 O2 Delivery Room Air Room Air Room Air Room Air 03/01/23 03/01/23 03/01/23 03/01/23 08:30 08:45 09:00 09:16 Temp 36.8 Pulse 112 108 110 115 Resp 18 20 18 18 B/P (MAP) 135/101 (112) 132/98 (109) 140/98 (112) 137/99 (112) Pulse Ox 99 O2 Delivery Room Air Room Air Room Air Room Air 03/01/23 03/01/23 03/01/23 03/01/23 09:21 09:22 09:25 09:28 Pulse 114 112 115 113 Resp 18 18 18 18 B/P (MAP) 133/94 (107) 134/99 (111) 134/98 (110) 119/91 (100) Pulse Ox 99 98 97 98 O2 Delivery Room Air Room Air Room Air Room Air 03/01/23 03/01/23 03/01/23 03/01/23 09:31 09:34 09:40 09:45 Temp 36.8 Pulse 110 111 105 106 Resp 18 18 18 18 B/P (MAP) 130/90 (103) 142/91 (108) 137/95 (109) 132/90 (104) Pulse Ox 98 98 98 97 O2 Delivery Room Air Room Air Room Air Room Air 03/01/23 03/01/23 03/01/23 03/01/23 09:50 09:55 10:00 10:20 Pulse 113 117 115 99 Resp 18 18 18 18 B/P (MAP) 132/79 (96) 134/74 (94) 128/80 (96) 122/75 (91) Pulse Ox 98 98 97 98 O2 Delivery Room Air Room Air Room Air Room Air 03/01/23 03/01/23 03/01/23 03/01/23 10:30 10:50 11:05 11:15 Temp 36.6 Pulse 98 98 112 117 Resp 18 18 16 18 B/P (MAP) 115/74 (88) 130/87 (101) 127/82 (97) 130/82 (98) Pulse Ox 98 98 97 98 O2 Delivery Room Air Room Air Room Air Room Air Signs of Distress by FHT Signs of Distress no Rupture of Membranes Spontaneous Ruture of Membrane: No Amniotic Membrane Rupture Time: 633 Amniotic Membrane Fluid Desc.: Clear Induction/Anesthesia Epidural Cath Placement - Time: 922 L&D Stage2 Stage Two Stage II Date: Mar 01, 2023 Stage II Time: 12:18 Monitors and Tracing Monitor Mode: Internal Heart Rate: 125 Monitor Accelerations: Uniform Monitor Decelerations: None Assisted Variability: Average (6-10) Position: Left Occiput Anterior Presentation: Vertex Signs of Distress by FHT Signs of Distress no Cord Descript/Complications Cord Vessel Description: 3 Vessels Delivery Type Delivery Method: Spontaneous Vaginal Anterior Shoulder: Left Episiotomy/Perineal Laceration Laceraction(s)/Extensions: No Condition of Infant Delivery 1 minute Comment: 9 5 minute Comment: 9 Condition of Infant Condition of : Living Exam: No Observed Abnormalities Resuscitation Resuscitation: N/A - Spontaneous Resp L&D Stage3 Stage Three Stage III Date: Mar 01, 2023 Stage III Time: 12:23 Pictocin Pitocin Administration mu/min: 4 Pitocin ml/hr: 4 Pitocin Administration Comment: pitocin started Placenta Delivery Placenta Delivery: Spontaneous Delivery Summary Summary Estimated blood loss (mL): 100 Condition of Delivery Examined: Cervix Examined Post Hemorrhage: No ART MAR MD Mar 01, 2023 12:52
[2023-03-01] MEDS ORDERED: TETANUS,DIPTH,PERTUSS P/F (BOOSTRIX) 0.5 ML VIAL IM ONE (13:00)
[2023-03-01] MEDS ORDERED: BENZOCAINE/MENTHOL (DERMOPLAST) 56 ML CAN TP PRN (13:00)
[2023-03-01] MEDS ORDERED: MEASLES,MUMPS,RUBELLA 1 EA INJ SQ ONE (13:00)
[2023-03-01] MEDS ORDERED: WITCH HAZEL(TUCKS) 40 EA JAR TOP PRN (13:00)
[2023-03-01] MEDS: IBUPROFEN 600 MG (MOTRIN) TAB PO SCH ×2 (13:59→20:32)
[2023-03-01] MEDS: ACETAMINOPHEN 500 MG TAB (TYLENOL) PO SCH ×2 (13:59→20:31)
[2023-03-01] MEDS ORDERED: CATHETER FLUSH 10 ML SYR IV SCH ×2 (14:00)
[2023-03-01] MEDS: DOCUSATE SODIUM 100 MG (COLACE) CAP PO SCH (20:32)
[2023-03-02] MEDS: IBUPROFEN 600 MG (MOTRIN) TAB PO SCH ×2 (03:15→09:30)
[2023-03-02] MEDS: ACETAMINOPHEN 500 MG TAB (TYLENOL) PO SCH ×2 (03:15→09:30)
[2023-03-02 03:16] VITALS: BP 120/77
[2023-03-02 06:19] LABS: BASOPHILS % (AUTO) 0 % (0-10); EOSINOPHILS # (AUTO) 0.1 10^3/uL (0.0-0.3); EOSINOPHILS % (AUTO) 1 % (0-10); HEMATOCRIT 31 % (35-52); HEMOGLOBIN 10.3 g/dL (11.5-16.0); LYMPHOCYTES # (AUTO) 3.3 10^3/uL (1.0-4.0); LYMPHOCYTES % (AUTO) 24 % (12-44); MEAN CORPUSCULAR HEMOGLOBIN 30 pg (25-34); MEAN CORPUSCULAR HGB CONC 33 g/dL (32-36); MEAN CORPUSCULAR VOLUME 90 fL (80-99); MEAN PLATELET VOLUME 11.8 fL (9.0-12.2); MONOCYTES % (AUTO) 7 % (0-12); NEUTROPHILS # (AUTO) 9.1 10^3/uL (1.8-7.8); NEUTROPHILS % (AUTO) 67 % (42-75); PLATELET COUNT 134 10^3/uL (130-400); WHITE BLOOD COUNT 13.7 10^3/uL (4.3-11.0)
--- NOTE | 2023-03-02 07:17 | Discharge Summary ---
Diagnosis/Chief Complaint Date of Admission Mar 01, 2023 at 05:56 Date of Discharge March 02, 2023 Discharge Date: Mar 02, 2023 Discharge Time: 14:00 Admission Diagnosis Admission Diagnosis 1. Intrauterine at 39 weeks gestation 2. Maternal tachycardiasinus Discharge Diagnosis 1. Intrauterine at 39 weeks gestation 2. Maternal tachycardiasinus Reason Hospital Visit 28-year-old 2 now term to L2 who initially presented to labor and delivery during the morning of March 01 for induction of labor at 39 weeks due to maternal tachycardia. The tachycardia is currently controlled with labetalol 200 mg twice daily. Her EDC is March 08, 2023. GBS status negative at 36 weeks. Discharge Summary-OBS Procedures 1. Epidural per anesthesia 2. Spontaneous vaginal delivery Discharge Physical Examination Allergies: Coded Allergies: No Known Drug Allergies (Unverified , 05/05/15) Vitals & I&Os Vital Signs Date Time Temp Pulse Resp B/P (MAP) Pulse Ox O2 Delivery O2 Flow Rate FiO2 03/02/23 03:16 36.3 96 16 120/77 (91) 97 Room Air General Appearance: No Acute Distress Respiratory: Clear to Auscultation Cardiovascular: Regular Rate Abdominal: Soft (With uterus firm) Hospital Course Was the Problem List Reviewed?: Yes following admission she underwent amniotomy with placement of scalp electrode. Fluid was noted to be clear. She required low-dose Pitocin augmentation to achieve adequate contractions. Ultimately she went on to completion and deliver a term viable male with Apgars of 9 at 1 minute and 9 at 5 minutes. Delivery was accomplished on March 01 at 1218. Maternal heart rate was controlled at approximately 100. Following delivery she underwent routine care orders. She had no complications during the remainder of hospital stay. she was without any shortness of breath or leg pain. She tolerated a regular diet. The hemoglobin in the morning of March 02 was 10.3 compared to admission of 12.1. Her vital signs were stable and she was felt ready for dismissal during the afternoon of March 02, 2023 Pending Labs Laboratory Tests 03/02/23 05:57: White Blood Count 13.7, Red Blood Count 3.45, Hemoglobin 10.3, Hematocrit 31, Mean Corpuscular Volume 90, Mean Corpuscular Hemoglobin 30, Mean Corpuscular Hemoglobin Concent 33, Red Cell Distribution Width 13.7, Platelet Count 134, Mean Platelet Volume 11.8, Immature Granulocyte % (Auto) 1, Neutrophils (%) (Auto) 67, Lymphocytes (%) (Auto) 24, Monocytes (%) (Auto) 7, Eosinophils (%) (A uto) 1, Basophils (%) (Auto) 0, Neutrophils # (Auto) 9.1, Lymphocytes # (Auto) 3.3, Monocytes # (Auto) 1.0, Eosinophils # (Auto) 0.1, Basophils # (Auto) 0.0, Immature Granulocyte # (Auto) 0.1 Discharge Instructions to patient/family Please see electronic discharge instructions given to patient. Discharge Medications Reviewed and agree with Discharge Medication list on patient's Discharge Instruction sheet ART MAR MD Mar 02, 2023 07:17
--- NOTE | 2023-03-02 07:19 | Discharge Inst-Women's Service ---
Discharge Inst-Women's Serv Depart Medication/Instructions New, Converted or Re-Newed RX: Other Instructions continue with labetalol 200 mg twice daily for an additional 1 week until seen in the clinic. May take [id number] ibuprofen 200 mg tablets, 2 or 3 as needed every 6 hours for cramps Problems Reviewed?: Yes Consults/Follow Up Additional Follow Up: Yes (With Dr. Mar in 6 weeks) Activity Activity: Activity as Tolerated Driving Instructions: You May Drive Nothing Inside Vagina: No [place] (For 6 weeks) Diet Discharge Diet: Regular Diet Return to The Hospital For: As below Symptoms to Report to : Bleeding Excessive, Fever Over 101 Degrees F, Vaginal Discharge Foul For Any Problems or Questions: Contact Your Physician ART MAR MD Mar 02, 2023 07:19
[2023-03-02 09:28] VITALS: BP 123/79
[2023-03-02] MEDS: DOCUSATE SODIUM 100 MG (COLACE) CAP PO SCH (09:30)
[2023-03-02] MEDS ORDERED: LABETALOL 200 MG (NORMODYNE) TAB PO NR (10:00)
--- NOTE | 2023-03-02 10:38 | Anesthesia-Regional Post-Op ---
Regional Patient Condition Mental Status: Alert, Oriented x3 Circulation: Same as Pre-Op Headache: Absent Sensation: Full Recovery Motor Block: Absent Post Op Complications Complications None Follow Up Care/Instructions Patient Instructions None needed. Anesthesia/Patient Condition Patient is doing well, no complaints, stable vital signs, no apparent adverse anesthesia problems. No complications reported per nursing. PACO GOMEZ CRNA Mar 02, 2023 10:38
== END 2023-03-02 14:12 | disposition home or self-care (01) | DRG 807 ==
LOC: LDRP 05:56
PROVIDERS: ADMIT Family Medicine; ATTEND Family Medicine
PROC: 10E0XZZ Delivery of Products of Conception, External Approach (ICD-10-PCS; principal; 2023-03-01)
PROC: 10907ZC Drainage of Amniotic Fluid, Therapeutic from Products of Conception, Via Natural or Artificial Opening (ICD-10-PCS; 2023-03-01)
PROC: 10H073Z Insertion of Monitoring Electrode into Products of Conception, Via Natural or Artificial Opening (ICD-10-PCS; 2023-03-01)
DX: O99.42 Diseases of the circulatory system complicating childbirth (principal); Z37.0 Single live birth; Z3A.39 39 weeks gestation of pregnancy; R00.0 Tachycardia, unspecified; Z79.899 Other long term (current) drug therapy; Z28.310 Unvaccinated for COVID-19
CPT/HCPCS: 36415; 81000; 85025; 86780; 86850; 86900; 86901